=== PATIENT | male | born 1975 | race African-American/Black ===

== ENCOUNTER 2018-03-26 18:05 | Emergency (ER) | payer OTHER ==
[~2018-03-26] VITALS: Ht 188 cm; Wt 99.0 kg
[~2018-03-26 18:05] MED LIST: BP MED PO
[2018-03-26 18:10] VITALS: BP 147/91; PULSE 79; RESP 16; TEMP 98.2; O2SAT 97
[2018-03-26] MEDS ORDERED: LISI2.5T3 PO (18:18)
[2018-03-26] MEDS ORDERED: CHON250C (18:18)
[2018-03-26] MEDS ORDERED: ASPI-516 CHEW (18:18)
[2018-03-26] MEDS ORDERED: AMLO2.5T PO (18:18)
[2018-03-26] MEDS ORDERED: METO25TA3 PO (18:18)
--- NOTE | 2018-03-26 19:53 | PD ---
HPI Chief Complaint: Oral / Dental Pain or Problem Time Seen by Provider: 18:51 Travel History International Travel<30 days: No Contact w/Intl Traveler<30days: No Traveled to known affect area: No History of Present Illness HPI This is a 42-year-old male here with bleeding and tenderness to his left upper gum. He reports after eating he sneezed and then tasted blood in his mouth. He was unable to identify where the bleeding was coming from therefore came into the ED. He denies any history of bleeding or clotting disorders. He has never had bleeding gums prior. Denies unexplained bruising. He did have his teeth cleaned in a local dentist 5 days ago and has had some gum tenderness since. He does take 81 mg aspirin daily. Symptom severity is moderate. PFSH Past Medical History Blood Disorders: No Heart Rhythm Problems: No Cancer: No Cardiovascular Problems: Yes Endocrine: No Genitourinary: Yes Hypertension: Yes Immune Disorder: No Kidney Stones: Yes Musculoskeletal: No Neurologic: Yes Psychiatric: No Reproductive: No Respiratory: Yes Family History Family Myocardial Infarction: Yes Social History Alcohol Use: No Tobacco Use: No Substance Use: No Allergies-Medications (Allergen,Severity, Reaction): Coded Allergies: No Known Allergies (Verified Adverse Reaction, Unknown, 03/26/18) Reported Meds & Prescriptions Reported Meds & Active Scripts Active Reported Chondroitin Sulfate (Chondroitin Sulfate A) 250 Mg Capsule Unknown Dose Aspirin 81 Mg Chew 81 Mg CHEW DAILY Amlodipine (Amlodipine Besylate) 2.5 Mg Tab Unknown Dose PO DAILY Lisinopril 2.5 Mg Tab Unknown Dose PO DAILY Metoprolol Tartrate 25 Mg Tab 25 Mg PO DAILY Review of Systems Except as stated in HPI: all other systems reviewed are Neg General / Constitutional: No: Fever Eyes: No: Visual changes HENT: No: Headaches Cardiovascular: No: Chest Pain or Discomfort Respiratory: No: Shortness of Breath Gastrointestinal: No: Abdominal Pain Genitourinary: No: Dysuria Musculoskeletal: No: Pain Skin: No Rash Neurologic: No: Weakness Physical Exam Narrative GENERAL: Alert and well-appearing 42-year-old male SKIN: Warm and dry. No areas of ecchymosis HEAD: Normocephalic. EYES: No scleral icterus. No injection or drainage. ENT: Mild gum tenderness, erythema and mild bleeding noted between tooth 15 and 16. NECK: Supple, trachea midline. No JVD or lymphadenopathy. CARDIOVASCULAR: Regular rate and rhythm without murmurs, gallops, or rubs. RESPIRATORY: Breath sounds equal bilaterally. No accessory muscle use. GASTROINTESTINAL: Abdomen soft, non-tender, nondistended. MUSCULOSKELETAL: No cyanosis, or edema. BACK: Nontender without obvious deformity. No CVA tenderness. Data Data Last Documented VS Vital Signs Date Time Temp Pulse Resp B/P (MAP) Pulse Ox O2 Delivery O2 Flow Rate FiO2 03/26/18 18:10 98.2 79 16 147/91 (109) 97 MDM Medical Decision Making Medical Screen Exam Complete: Yes Emergency Medical Condition: Yes Differential Diagnosis Dental infection, dental bleeding, coagulopathy Narrative Course 42-year-old male here with mild bleeding from the gums in between tooth #15 and 16. He recently had dental cleaning. Bleeding was stopped after placing gauze packing near the gums. He is stable and ready for discharge. Diagnosis Primary Impression: Bleeding gums Referrals: Dentist Additional Instructions: Follow a soft diet If the gum bleeds apply gauze packing as instructed in the ED Scripts Penicillin V Potassium (Penicillin V Potassium) 500 Mg Tab 500 MG PO Q6H for Infection for 7 Days, #28 TAB 0 Refills Prov: Diana Melgoza 03/26/18 Disposition: 01 DISCHARGE HOME Condition: Stable Diana Melgoza March 26, 2018 19:53
[2018-03-26] MEDS ORDERED: PENI500T PO (20:13)
== END 2018-03-26 20:21 | disposition home or self-care (01) ==
LOC: PHEFT 18:05
DX: K06.8 Other specified disorders of gingiva and edentulous alveolar ridge (principal); I10 Essential (primary) hypertension; Z79.82 Long term (current) use of aspirin
CPT/HCPCS: 99283